=== PATIENT | female | born 1955 | race Caucasian/White ===

== ENCOUNTER 2016-11-17 18:38 | Emergency (ER) | payer MEDICARE, OTHER ==
[2016-11-17 19:58] VITALS: BP 147/77
--- NOTE | 2016-11-17 20:15 | EDM.PDOC ---
ED HPI GENERAL MEDICAL PROBLEM - General Chief Complaint: Respiratory Problem Stated Complaint: PNEUMONIA/NOT GETTING BETTER Time Seen by Provider: 11/17/16 20:06 Source of Information: Reports: Patient, Old Records, RN Notes Reviewed History Limitations: Reports: No Limitations - History of Present Illness INITIAL COMMENTS - FREE TEXT/NARRATIVE: drove herself here Chief complaint Cough, chest tightness, "pneumonia not getting better" History of present illness 61-year-old female was seen in emergency room in [place] 15 days ago diagnosed with right lung pneumonia and prescribed azithromycin and albuterol. Seen in follow-up a few days later and was changed to cefuroxime by mouth twice a day and Brio inhaler. She was getting better until yesterday, when she finished her a cefuroxime. Started getting cough and chest tightness again. Initially she had fever up to 102. She's felt hot and cold and sweaty in the last few days but no fever documented. She is been able to eat but she's been drinking more. She feels like she could cough something up but also manages his a nonproductive cough. Chest feels tight but there is no pleuritic or sharp pain in the chest. 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 She had multiple injuries to her shoulder chest and pelvis related to her service and underwent numerous surgeries. She still has a home in [place] as well as a home locally. Bilateral Chest Pain Score (Numeric/FACES): 4 - Related Data Allergies Allergy/AdvReac Type Severity Reaction Status Date / Time beclomethasone dipropionate Allergy Rash Verified 11/17/16 19:52 [From Vancenase] butorphanol [From Stadol] Allergy Stomach Verified 11/17/16 19:52 Upset clopidogrel Allergy Cannot Verified 11/17/16 19:52 Remember duloxetine HCl Allergy Other Verified 11/17/16 19:52 [From Cymbalta] gabapentin Allergy Airway Verified 11/17/16 19:52 Tightness hyoscyamus Allergy Cannot Verified 11/17/16 19:52 Remember naproxen Allergy Anaphylactic Verified 11/17/16 19:52 Shock prednisone Allergy Rash Verified 11/17/16 19:52 pregabalin [From Lyrica] Allergy Cannot Verified 11/17/16 19:52 Remember simvastatin Allergy Cannot Verified 11/17/16 19:52 Remember tetracycline Allergy Rash Verified 11/17/16 19:52 aspartame AdvReac Headache Verified 11/17/16 19:52 aspirin AdvReac Vomiting Verified 11/17/16 19:52 [From Fiorinal-Codeine #3] butalbital AdvReac Vomiting Verified 11/17/16 19:52 [From Fiorinal-Codeine #3] butorphanol tartrate AdvReac Body Aches Verified 11/17/16 19:52 [From Stadol] caffeine AdvReac Vomiting Verified 11/17/16 19:52 [From Fiorinal-Codeine #3] codeine phosphate AdvReac Vomiting Verified 11/17/16 19:52 [From Fiorinal-Codeine #3] fentanyl AdvReac Vomiting Verified 11/17/16 19:52 formoterol fumarate AdvReac Shaking Verified 11/17/16 19:52 [From Dulera] hydrocodone AdvReac Vomiting Verified 11/17/16 19:52 hyoscyamine AdvReac Diarrhea Verified 11/17/16 19:52 ibuprofen [From Motrin] AdvReac Abdominal Verified 11/17/16 19:52 Pain mometasone furoate AdvReac Shaking Verified 11/17/16 19:52 [From Dulera] pravastatin AdvReac Abdominal Verified 11/17/16 19:52 Cramps Home Meds: Home Meds Aspirin [Hudson Chewable Aspirin] 81 mg PO DAILY 04/10/14 [History] Cefuroxime [Ceftin] 250 mg PO BID #14 tablet 11/17/16 [Rx] Dexamethasone 4 mg PO BID #14 tablet 11/17/16 [Rx] Fluticasone/Vilanterol [Breo Ellipta 100-25 MCG Inhalation Kit] 1 puff INH DAILY 11/17/16 [History] L Acidophil/B Lactis/B Longum [Florajen3] 1 cap PO DAILY 11/17/16 [History] Past Medical History HEENT History: Reports: Other (See Below) Other HEENT History: TMJ, eustachian tube dysfunction, tinnitus Respiratory History: Reports: Pneumonia, Recurrent Gastrointestinal History: Reports: Cholelithiasis Musculoskeletal History: Reports: Fibromyalgia - Infectious Disease History Infectious Disease History: Reports: C-Difficile - Past Surgical History HEENT Surgical History: Reports: Adenoidectomy, Oral Surgery, Tonsillectomy Cardiovascular Surgical History: Reports: Carotid Endarterectomy GI Surgical History: Reports: Cholecystectomy Neurological Surgical History: Reports: Discectomy, Lumbar Spine, Spinal Fusion Musculoskeletal Surgical History: Reports: Knee Replacement, Shoulder Surgery Social & Family History - Tobacco Use Smoking Status *Q: Never Smoker Second Hand Smoke Exposure: No - Caffeine Use Caffeine Use: Reports: None - Alcohol Use Days Per Week of Alcohol Use: 0 - Recreational Drug Use Recreational Drug Use: No ED ROS GENERAL - Review of Systems Review Of Systems: See Below Constitutional: Reports: Malaise, Fatigue, Diaphoresis. Denies: Fever HEENT: Reports: No Symptoms Respiratory: Reports: Shortness of Breath, Cough, Other (talking makes her short of breath). Denies: Sputum Cardiovascular: Denies: Chest Pain, Blood Pressure Problem, Edema Endocrine: Reports: No Symptoms GI/Abdominal: Reports: Decreased Appetite, Other (stool is altered and color). Denies: Abdominal Pain, Diarrhea, Vomiting : Reports: Other (urine is darker) Musculoskeletal: Reports: Other (limited mobility right shoulder due to previous surgeries, very sensitive in this area) Skin: Reports: No Symptoms Neurological: Reports: No Symptoms Hematologic/Lymphatic: Reports: No Symptoms ED EXAM, GENERAL - Physical Exam Exam: See Below Exam Limited By: No Limitations General Appearance: Alert, Anxious, Mild Distress, Other (space at length to the point that she gets short of breath, mild elevation systolic blood pressure otherwise vital signs normal including saturation on room air, does wheeze when she coughs) Eye Exam: Bilateral Eye: EOMI, Normal Inspection Ears: Normal External Exam, Normal Canal, Hearing Grossly Normal, Normal TMs Nose: Normal Inspection, Normal Mucosa Throat/Mouth: Normal Inspection, Normal Lips, Normal Teeth, Other (slightly wheezy voice) Head: Atraumatic Neck: Supple, Non-Tender, Other (scarring on the right side of the neck from previous surgery). No: Lymphadenopathy (R), Lymphadenopathy (L) Respiratory/Chest: No Respiratory Distress, No Accessory Muscle Use, Rhonchi, Wheezing (especially with coughing), Prolonged Expiration Cardiovascular: Normal Peripheral Pulses, Regular Rate, Rhythm GI/Abdominal: Soft, Non-Tender Extremities: Limited Range of Motion (and tenderness right shoulder) Neurological: Alert, Oriented, Normal Cognition Psychiatric: Anxious Skin Exam: Warm, Dry, Intact, Normal Color, No Rash Lymphatic: No Adenopathy Course - Vital Signs Last Recorded V/S: Last Vital Signs Temp 36.6 C 11/17/16 19:56 Pulse 83 11/17/16 19:56 Resp 20 11/17/16 19:56 BP 147/77 H 11/17/16 19:56 Pulse Ox 99 11/17/16 19:56 - Orders/Labs/Meds Orders: Active Orders 24 hr Category Date Time Status RT Aerosol Therapy [RC] ASDIRECTED Care 11/17/16 20:28 Active RT Aerosol Therapy [RC] ASDIRECTED Care 11/17/16 21:44 Active Chest 2V [CR] Stat Exams 11/17/16 20:27 Taken Labs: Laboratory Tests 11/17/16 11/17/16 Range/Units 20:41 20:41 WBC 7.3 (4.5-11.0) K/uL RBC 4.47 (3.30-5.50) M/uL Hgb 13.1 (12.0-15.0) g/dL Hct 40.1 (36.0-48.0) % MCV 90 (80-98) fL MCH 29 (27-31) pg MCHC 33 (32-36) % Plt Count 262 (150-400) K/uL Sodium 142 (140-148) mmol/L Potassium 4.3 (3.6-5.2) mmol/L Chloride 106 (100-108) mmol/L Carbon Dioxide 29 (21-32) mmol/L Anion Gap 7.0 (5.0-14.0) mmol/L BUN 18 (7-18) mg/dL Creatinine 1.0 (0.6-1.0) mg/dL Est Cr Clr Drug Dosing 56.71 mL/min Estimated GFR (MDRD) 57 L (>60) Glucose 108 H (74-106) mg/dL Calcium 9.2 (8.5-10.1) mg/dL Meds: Medications Discontinued Medications Generic Name Dose Route Start Last Admin Trade Name Freq PRN Reason Stop Dose Admin Albuterol/Ipratropium 3 ml 11/17/16 20:27 11/17/16 20:44 Duoneb 3.0-0.5 Mg/3 Ml NEB 11/17/16 20:28 3 ml ONETIME ONE Administration Albuterol/Ipratropium 3 ml 11/17/16 21:44 11/17/16 21:57 Duoneb 3.0-0.5 Mg/3 Ml NEB 11/17/16 21:45 3 ml ONETIME ONE Administration Cefuroxime Axetil 250 mg 11/17/16 21:44 11/17/16 21:55 Ceftin PO 11/17/16 21:45 250 mg ONETIME ONE Administration Dexamethasone 4 mg 11/17/16 21:43 11/17/16 21:55 Dexamethasone PO 11/17/16 21:44 4 mg ONETIME ONE Administration - Re-Assessments/Exams Free Text/Narrative Re-Assessment/Exam: 11/17/16 20:34 61-year-old female who was diagnosed with right-sided pneumonia on February 02, has persisting cough wheezing chest tightness although she is afebrile and her O2 saturation is normal on room air. Albuterol/ipratropium by nebulizer Chest x-ray 11/17/16 21:42 improvement in her breathing with the nebulizer, this will be repeated Chest x-ray by my interpretation shows a small area of pneumonia inferior aspect of right upper lobe CBC is normal Plan Extend cefuroxime 250 mg twice daily for an additional 7 days to make a total of 14 days Add dexamethasone 8 mg daily for 7 days 11/17/16 21:47 Departure - Departure Time of Disposition: 21:48 Disposition: Home, Self-Care 01 Condition: Good Clinical Impression: Right upper lobe pneumonia Qualifiers: Pneumonia type: due to unspecified organism Qualified Code(s): J18.1 - Lobar pneumonia, unspecified organism - Discharge Information Prescriptions: Cefuroxime [Ceftin] 250 mg PO BID #14 tablet Dexamethasone 4 mg PO BID #14 tablet Instructions: Community-Acquired Pneumonia, Adult, [id number] Referrals: PCP,None [Primary Care Provider] - Forms: ED Department Discharge Additional Instructions: please see your doctor or clinic if not improving within the next week Otherwise she will want to see her doctor within the next few weeks to get repeat x-ray done to make sure that the x-ray returns to normal - My Orders Last 24 Hours: My Active Orders 11/17/16 20:27 Chest 2V [CR] Stat 11/17/16 20:28 RT Aerosol Therapy [RC] ASDIRECTED 08/07/17 21:44 RT Aerosol Therapy [RC] ASDIRECTED - Assessment/Plan Last 24 Hours: My Active Orders 11/17/16 20:27 Chest 2V [CR] Stat 11/17/16 20:28 RT Aerosol Therapy [RC] ASDIRECTED 11/17/16 21:44 RT Aerosol Therapy [RC] ASDIRECTED
[2016-11-17] MEDS ORDERED: Albuterol/Ipratropium 3.0-0.5 MG/3 ML Neb Soln NEB ONE ×2 (20:27→21:44)
[2016-11-17] MEDS ORDERED: Dexamethasone 4 MG Tab PO ONE (21:43)
--- NOTE | 2016-11-18 09:26 | CR ---
Chest 2V HISTORY: cough dyspnea dx rt pneumonia OCt 23 FINDINGS: There are mild infiltrates and consolidation right middle lobe suspicious for pneumonia. R emainder of the chest is clear. Cardiomediastinal silhouette is within normal limits. No vascular re distribution or pleural fluid is seen. Bony structures are unremarkable. IMPRESSION: Probable right middle lobe pneumonia. Follow-up chest exam is recommended after treatmen t to document resolution.
== END 2016-11-17 22:17 | disposition home or self-care (01) ==
LOC: JP.ED 18:38
DX: J18.9 Pneumonia, unspecified organism (principal); Z98.890 Other specified postprocedural states; Z90.49 Acquired absence of other specified parts of digestive tract; Z96.659 Presence of unspecified artificial knee joint; Z88.6 Allergy status to analgesic agent; Z88.8 Allergy status to other drugs, medicaments and biological substances; Z88.5 Allergy status to narcotic agent; Z88.1 Allergy status to other antibiotic agents; Z79.899 Other long term (current) drug therapy; Z91.09 Other allergy status, other than to drugs and biological substances
CPT/HCPCS: 36415; 71020; 80048; 85027; 99285; A9270; J7620; J8540; 99284

== ENCOUNTER 2016-12-05 10:48 | Emergency (ER) | payer MEDICARE, OTHER ==
[2016-12-05 11:47] VITALS: BP 163/91
--- NOTE | 2016-12-05 11:59 | EDM.PDOC ---
ED HPI GENERAL MEDICAL PROBLEM - General Chief Complaint: Respiratory Problem Stated Complaint: SHORTNESS OF BREATH Time Seen by Provider: 12/05/16 11:30 Source of Information: Reports: Patient, Family History Limitations: Reports: No Limitations - History of Present Illness INITIAL COMMENTS - FREE TEXT/NARRATIVE: 61-year-old female who has been struggling with a "pneumonia" for the past month , several courses of antibiotics who had a d-dimer checked 2 days ago which was elevated, a CT scan of her chest this morning which showed pulmonary artery emboli on the right side so she was sent to the emergency room. She is short of breath with activity but not hypoxic, not tachycardic, she has a dull intermittent chest pain but nothing significant. No hemoptysis. Onset: Gradual Duration: Week(s): (Several weeks) Associated Symptoms: Reports: Chest Pain, Cough, Shortness of Breath Right Chest Pain Score (Numeric/FACES): 6 - Related Data Allergies Allergy/AdvReac Type Severity Reaction Status Date / Time gabapentin Allergy Severe Airway Verified 12/05/16 11:24 Tightness naproxen Allergy Severe Anaphylactic Verified 12/05/16 11:24 Shock beclomethasone dipropionate Allergy Rash Verified 12/05/16 11:24 [From Vancenase] butorphanol [From Stadol] Allergy Stomach Verified 12/05/16 11:24 Upset clopidogrel Allergy Cannot Verified 12/05/16 11:24 Remember duloxetine HCl Allergy Other Verified 12/05/16 11:24 [From Cymbalta] hyoscyamus Allergy Cannot Verified 12/05/16 11:24 Remember prednisone Allergy Rash Verified 12/05/16 11:24 pregabalin [From Lyrica] Allergy Cannot Verified 12/05/16 11:24 Remember simvastatin Allergy Cannot Verified 12/05/16 11:24 Remember tetracycline Allergy Rash Verified 12/05/16 11:24 aspartame AdvReac Headache Verified 12/05/16 11:24 aspirin AdvReac Vomiting Verified 12/05/16 11:24 [From Fiorinal-Codeine #3] butalbital AdvReac Vomiting Verified 12/05/16 11:24 [From Fiorinal-Codeine #3] butorphanol tartrate AdvReac Body Aches Verified 12/05/16 11:24 [From Stadol] caffeine AdvReac Vomiting Verified 12/05/16 11:24 [From Fiorinal-Codeine #3] codeine phosphate AdvReac Vomiting Verified 12/05/16 11:24 [From Fiorinal-Codeine #3] fentanyl AdvReac Vomiting Verified 12/05/16 11:24 formoterol fumarate AdvReac Shaking Verified 12/05/16 11:24 [From Dulera] hydrocodone AdvReac Vomiting Verified 12/05/16 11:24 hyoscyamine AdvReac Diarrhea Verified 12/05/16 11:24 ibuprofen [From Motrin] AdvReac Abdominal Verified 12/05/16 11:24 Pain mometasone furoate AdvReac Shaking Verified 12/05/16 11:24 [From Dulera] pravastatin AdvReac Abdominal Verified 12/05/16 11:24 Cramps Home Meds: Home Meds Aspirin [Hudson Chewable Aspirin] 81 mg PO DAILY 04/10/14 [History] L Acidophil/B Lactis/B Longum [Florajen3] 1 cap PO DAILY 11/17/16 [History] Levofloxacin [Levaquin] 500 mg PO Q24H 12/05/16 [History] Past Medical History HEENT History: Reports: Other (See Below) Other HEENT History: TMJ, eustachian tube dysfunction, tinnitus Respiratory History: Reports: Pneumonia, Recurrent Gastrointestinal History: Reports: Cholelithiasis Musculoskeletal History: Reports: Fibromyalgia 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 - Infectious Disease History Infectious Disease History: Reports: C-Difficile, Chicken Pox, Measles - Past Surgical History HEENT Surgical History: Reports: Adenoidectomy, Oral Surgery, Tonsillectomy Cardiovascular Surgical History: Reports: Carotid Endarterectomy Other Respiratory Surgeries/Procedures: thoracic outlet syndrome GI Surgical History: Reports: Cholecystectomy Neurological Surgical History: Reports: Discectomy, Lumbar Spine, Spinal Fusion Musculoskeletal Surgical History: Reports: Arthroscopic Knee, Shoulder Surgery Other Musculoskeletal Surgeries/Procedures:: torn meniscus both knees Social & Family History - Tobacco Use Smoking Status *Q: Never Smoker Second Hand Smoke Exposure: No - Caffeine Use Caffeine Use: Reports: None - Alcohol Use Days Per Week of Alcohol Use: 0 - Recreational Drug Use Recreational Drug Use: No ED ROS GENERAL - Review of Systems Review Of Systems: See Below Constitutional: Reports: Malaise. Denies: Fever, Chills Respiratory: Reports: Shortness of Breath, Cough. Denies: Sputum Cardiovascular: Reports: Chest Pain (Dull intermittent pain on the upper right chest) GI/Abdominal: Denies: Nausea, Vomiting Skin: Reports: No Symptoms Neurological: Reports: No Symptoms Psychiatric: Reports: No Symptoms ED EXAM, GENERAL - Physical Exam Exam: See Below Exam Limited By: No Limitations General Appearance: Alert, No Apparent Distress Head: Atraumatic Respiratory/Chest: No Respiratory Distress, Lungs Clear Cardiovascular: Regular Rate, Rhythm GI/Abdominal: Non-Tender Extremities: No: Pedal Edema Neurological: Alert, Oriented Psychiatric: Normal Affect, Normal Mood Skin Exam: Warm, Dry Course - Vital Signs Last Recorded V/S: Last Vital Signs Temp 96.2 F 12/05/16 11:20 Pulse 98 12/05/16 11:20 Resp 18 12/05/16 11:20 BP 163/91 H 12/05/16 11:20 Pulse Ox 98 12/05/16 11:20 - Orders/Labs/Meds Labs: Laboratory Tests 12/05/16 Range/Units 12:14 PT 9.9 (9.5-12.0) sec INR 0.93 (0.80-1.20) Meds: Medications Discontinued Medications Generic Name Dose Route Start Last Admin Trade Name Freq PRN Reason Stop Dose Admin Enoxaparin Sodium 150 mg 12/05/16 12:30 12/05/16 12:40 Lovenox SUBCUT 150 mg Q24H GLADYS Administration Warfarin Sodium 7.5 mg 12/05/16 12:30 12/05/16 12:39 Coumadin PO 12/05/16 12:31 7.5 mg ONETIME ONE Administration - Re-Assessments/Exams Free Text/Narrative Re-Assessment/Exam: 12/05/16 12:10 Patient is not hypoxic, not tachycardic and stable, with symptoms lasting for several weeks her PE has probably been there for most of that time. Discussed her condition with the hospitalist service and anticoagulation will be initiated. She'll be given 150 mg of Lovenox subcutaneous through the weekend along with 7.5 mg of warfarin, daily INRs will be started tomorrow. Hopefully her anticoagulation and care can be taken over by primary care next week. Departure - Departure Time of Disposition: 13:34 Disposition: Home, Self-Care 01 Condition: Good Clinical Impression: Pulmonary embolism on right - Discharge Information Instructions: Pulmonary Embolism Referrals: Se Barros MD [Primary Care Provider] - Forms: ED Department Discharge Care Plan Goals: Continue your current medications and return daily for anticoagulation medications and testing as discussed.
[2016-12-05] MEDS ORDERED: Enoxaparin 100 MG/1 ML Syringe SUBCUT ONE (12:07)
[2016-12-05] MEDS ORDERED: Warfarin 5 MG Tab PO ONE (12:07)
[2016-12-05] MEDS ORDERED: Enoxaparin 80 MG/0.8 ML Syringe SUBCUT SCH (12:30)
[2016-12-05] MEDS ORDERED: Warfarin 2.5 MG Tab PO ONE (12:30)
== END 2016-12-05 13:31 | disposition home or self-care (01) ==
LOC: JP.ED 10:48
DX: I26.99 Other pulmonary embolism without acute cor pulmonale (principal); Z88.8 Allergy status to other drugs, medicaments and biological substances; Z88.1 Allergy status to other antibiotic agents; Z88.5 Allergy status to narcotic agent; Z88.6 Allergy status to analgesic agent; Z79.82 Long term (current) use of aspirin; Z79.899 Other long term (current) drug therapy; Z90.49 Acquired absence of other specified parts of digestive tract; Z98.1 Arthrodesis status; Z98.890 Other specified postprocedural states; R06.02 Shortness of breath; R91.8 Other nonspecific abnormal finding of lung field; R79.1 Abnormal coagulation profile
CPT/HCPCS: 36415; 71275; 82565; 85610; 99285; A9270; J1650; J7030; Q9967; 99284

== ENCOUNTER 2017-01-26 13:30 | Emergency (ER) | payer MEDICARE, OTHER ==
[2017-01-26 13:48] VITALS: BP 151/96
--- NOTE | 2017-01-26 14:43 | EDM.PDOC ---
ED HPI GENERAL MEDICAL PROBLEM - General Chief Complaint: Respiratory Problem Stated Complaint: CHEST TIGHTNESS Time Seen by Provider: 01/26/17 14:00 Source of Information: Reports: Patient History Limitations: Reports: No Limitations - History of Present Illness INITIAL COMMENTS - FREE TEXT/NARRATIVE: 61-year-old female with a history of pulmonary emboli over the past several days has had increased cough, burning sensation in her chest and intermittent shortness of breath. I believe she has a strong anxiety component as well. She is on Coumadin for the PE. She is also taking medicine under her tongue to combat systemic candidiasis. She denies any fevers or chills, she is a nonsmoker. She claims her cough is becoming productive. Onset: Gradual (Over the past several days) Severity: Moderate Associated Symptoms: Reports: Chest Pain, Cough, Shortness of Breath. Denies: Fever/Chills, Nausea/Vomiting Upper Chest Pain Score (Numeric/FACES): 8 - Related Data Allergies Allergy/AdvReac Type Severity Reaction Status Date / Time gabapentin Allergy Severe Airway Verified 01/26/17 13:52 Tightness naproxen Allergy Severe Anaphylactic Verified 01/26/17 13:52 Shock beclomethasone dipropionate Allergy Rash Verified 01/26/17 13:52 [From Vancenase] butorphanol [From Stadol] Allergy Stomach Verified 01/26/17 13:52 Upset clopidogrel Allergy Cannot Verified 01/26/17 13:52 Remember duloxetine HCl Allergy Other Verified 01/26/17 13:52 [From Cymbalta] hyoscyamus Allergy Cannot Verified 01/26/17 13:52 Remember prednisone Allergy Rash Verified 01/26/17 13:52 pregabalin [From Lyrica] Allergy Cannot Verified 01/26/17 13:52 Remember simvastatin Allergy Cannot Verified 01/26/17 13:52 Remember tetracycline Allergy Rash Verified 01/26/17 13:52 aspartame AdvReac Headache Verified 01/26/17 13:52 aspirin AdvReac Vomiting Verified 01/26/17 13:52 [From Fiorinal-Codeine #3] butalbital AdvReac Vomiting Verified 01/26/17 13:52 [From Fiorinal-Codeine #3] butorphanol tartrate AdvReac Body Aches Verified 01/26/17 13:52 [From Stadol] caffeine AdvReac Vomiting Verified 01/26/17 13:52 [From Fiorinal-Codeine #3] codeine phosphate AdvReac Vomiting Verified 01/26/17 13:52 [From Fiorinal-Codeine #3] fentanyl AdvReac Vomiting Verified 01/26/17 13:52 formoterol fumarate AdvReac Shaking Verified 01/26/17 13:52 [From Dulera] hydrocodone AdvReac Vomiting Verified 01/26/17 13:52 hyoscyamine AdvReac Diarrhea Verified 01/26/17 13:52 ibuprofen [From Motrin] AdvReac Abdominal Verified 01/26/17 13:52 Pain mometasone furoate AdvReac Shaking Verified 01/26/17 13:52 [From Dulera] pravastatin AdvReac Abdominal Verified 01/26/17 13:52 Cramps Home Meds: Home Meds Aspirin [Hudson Chewable Aspirin] 81 mg PO DAILY 04/10/14 [History] L Acidophil/B Lactis/B Longum [Florajen3] 1 cap PO DAILY 11/17/16 [History] Warfarin [Coumadin] 2 mg PO DAILY 01/26/17 [History] Past Medical History HEENT History: Reports: Other (See Below) Other HEENT History: TMJ, eustachian tube dysfunction, tinnitus Cardiovascular History: Reports: Blood Clots/VTE/DVT Respiratory History: Reports: PE, Pneumonia, Recurrent Gastrointestinal History: Reports: Cholelithiasis Musculoskeletal History: Reports: Fibromyalgia 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 Endocrine/Metabolic History: Reports: Obesity/BMI 30+ - Infectious Disease History Infectious Disease History: Reports: C-Difficile - Past Surgical History HEENT Surgical History: Reports: Adenoidectomy, Oral Surgery, Tonsillectomy Cardiovascular Surgical History: Reports: Carotid Endarterectomy Other Respiratory Surgeries/Procedures: thoracic outlet syndrome GI Surgical History: Reports: Cholecystectomy Neurological Surgical History: Reports: Discectomy, Lumbar Spine, Spinal Fusion Musculoskeletal Surgical History: Reports: Arthroscopic Knee, Shoulder Surgery Other Musculoskeletal Surgeries/Procedures:: torn meniscus both knees Social & Family History - Tobacco Use Smoking Status *Q: Never Smoker Second Hand Smoke Exposure: No - Caffeine Use Caffeine Use: Reports: None - Alcohol Use Days Per Week of Alcohol Use: 0 - Recreational Drug Use Recreational Drug Use: No ED ROS GENERAL - Review of Systems Review Of Systems: See Below Constitutional: Reports: Malaise. Denies: Fever, Chills HEENT: Reports: Rhinitis Respiratory: Reports: Shortness of Breath, Cough, Sputum Cardiovascular: Reports: Chest Pain GI/Abdominal: Reports: Other (Claims she has some type of abdominal candidiasis) . Denies: Nausea, Vomiting Skin: Reports: No Symptoms Neurological: Reports: Dizziness. Denies: Headache Psychiatric: Reports: Anxiety ED EXAM, GENERAL - Physical Exam Exam: See Below Exam Limited By: No Limitations General Appearance: Alert, No Apparent Distress, Anxious Head: Atraumatic Respiratory/Chest: No Respiratory Distress, Lungs Clear Cardiovascular: Regular Rate, Rhythm GI/Abdominal: Soft, Non-Tender Neurological: Alert Psychiatric: Anxious Skin Exam: Warm, Dry Course - Vital Signs Last Recorded V/S: Last Vital Signs Temp 98.2 F 01/26/17 13:44 Pulse 99 01/26/17 13:44 Resp 20 01/26/17 13:44 BP 151/96 H 01/26/17 13:44 Pulse Ox 96 01/26/17 13:44 - Orders/Labs/Meds Orders: Active Orders 24 hr Category Date Time Status Chest 2V [CR] Routine Exams 01/26/17 14:45 Taken - Re-Assessments/Exams Free Text/Narrative Re-Assessment/Exam: 01/26/17 14:42 Patient was sent back for a two-view chest x-ray. 01/26/17 15:56 the x-ray showed an abnormality in the right apex which is consistent with past surgical changes, there was no other findings. Patient remained stable. I don't feel antibiotic therapy is warranted at this time. She was sent over to the Coumadin clinic to get her pro time checked and she can recheck in 2 days if not improving satisfactorily. 01/26/17 17:34 Patient informed us that her pro time is 2.2. She was reassured that no further treatment is needed at this time. Departure - Departure Time of Disposition: 16:06 Disposition: Home, Self-Care 01 Condition: Good Clinical Impression: Bronchitis - Discharge Information Instructions: Acute Bronchitis, [id number] Referrals: Se Barros MD [Primary Care Provider] - Forms: ED Department Discharge Care Plan Goals: Rest, fluids, your cough should improve with time. Return at any time if worsening or concerns, or consider rechecking in 2-3 days if not improving. - My Orders Last 24 Hours: My Active Orders 01/26/17 14:45 Chest 2V [CR] Routine - Assessment/Plan Last 24 Hours: My Active Orders 01/26/17 14:45 Chest 2V [CR] Routine
--- NOTE | 2017-01-27 09:08 | CR ---
Two-view chest Comparison: Chest CT November 2016. The heart and vascular structures are within normal limits. There are no infiltrates or effusions. Th e patient has had a prior right thoracotomy. Several anterior right ribs of the upper hemithorax are absent. There is a density protruding into the right upper lobe region consistent with fat as noted o n the CT. Impression: 1. No acute findings.
== END 2017-01-26 16:06 | disposition home or self-care (01) ==
LOC: JP.ED 13:30
DX: J40 Bronchitis, not specified as acute or chronic (principal); Z86.711 Personal history of pulmonary embolism; Z79.01 Long term (current) use of anticoagulants; Z79.82 Long term (current) use of aspirin; Z88.8 Allergy status to other drugs, medicaments and biological substances; Z88.5 Allergy status to narcotic agent; Z88.6 Allergy status to analgesic agent; Z87.01 Personal history of pneumonia (recurrent)
CPT/HCPCS: 71020; 71020-26; 99283; 99285

== ENCOUNTER 2020-06-21 12:35 | Emergency (ER) | payer MEDICARE, OTHER ==
[2020-06-21] MEDS ORDERED: diphenhydrAMINE 50 MG/ML SDV IVPUSH ONE (13:03)
--- NOTE | 2020-06-21 13:12 | EDM.PDOC ---
ED HPI GENERAL MEDICAL PROBLEM - General Chief Complaint: Neurological Problem Stated Complaint: TROUBLE TALKING, LIGHT HEADED, NUMBNESS IN HEAD Time Seen by Provider: 06/21/20 12:50 Source of Information: Reports: Patient, Family History Limitations: Reports: No Limitations - History of Present Illness INITIAL COMMENTS - FREE TEXT/NARRATIVE: 64-year-old female who developed some expressive aphasia this morning while on her phone talking to her provider. They recommended she come in and get checked out. She is improved, her speech is basically back to normal but she feels hot, flushed, lightheaded, and did have some numbness on the right side of her tongue and neck earlier today. Her blood pressure is high for her. She is having no pain. Onset: Sudden (Aphasia started fairly suddenly about 1 hour ago) Associated Symptoms: Reports: Malaise, Rash (Face and neck are erythematous). Denies: Confusion, Chest Pain, Cough, Nausea/Vomiting - Related Data Allergies Allergy/AdvReac Type Severity Reaction Status Date / Time gabapentin Allergy Severe Airway Verified 06/21/20 13:37 Tightness naproxen Allergy Severe Anaphylactic Verified 06/21/20 13:37 Shock beclomethasone dipropionate Allergy Rash Verified 06/21/20 13:37 [From Vancenase] clopidogrel Allergy Cannot Verified 06/21/20 13:37 Remember duloxetine HCl Allergy Other Verified 06/21/20 13:37 [From Cymbalta] hyoscyamus Allergy Cannot Verified 06/21/20 13:37 Remember prednisone Allergy Rash Verified 06/21/20 13:37 pregabalin [From Lyrica] Allergy Cannot Verified 06/21/20 13:37 Remember simvastatin Allergy Cannot Verified 06/21/20 13:37 Remember tetracycline Allergy Rash Verified 06/21/20 13:37 aspartame AdvReac Headache Verified 06/21/20 13:37 aspirin AdvReac Vomiting Verified 06/21/20 13:37 [From Fiorinal-Codeine #3] butalbital AdvReac Vomiting Verified 06/21/20 13:37 [From Fiorinal-Codeine #3] butorphanol [From Stadol] AdvReac Stomach Verified 06/21/20 13:37 Upset butorphanol tartrate AdvReac Body Aches Verified 06/21/20 13:37 [From Stadol] caffeine AdvReac Vomiting Verified 06/21/20 13:37 [From Fiorinal-Codeine #3] codeine phosphate AdvReac Vomiting Verified 06/21/20 13:37 [From Fiorinal-Codeine #3] fentanyl AdvReac Vomiting Verified 06/21/20 13:37 formoterol fumarate AdvReac Shaking Verified 06/21/20 13:37 [From Dulera] hydrocodone AdvReac Vomiting Verified 06/21/20 13:37 hyoscyamine AdvReac Diarrhea Verified 06/21/20 13:37 ibuprofen [From Motrin] AdvReac Abdominal Verified 06/21/20 13:37 Pain mometasone furoate AdvReac Shaking Verified 06/21/20 13:37 [From Dulera] pravastatin AdvReac Abdominal Verified 06/21/20 13:37 Cramps Home Meds: Home Meds Aspirin [Hudson Chewable Aspirin] 81 mg PO DAILY 04/10/14 [History] L Acidophil/B Lactis/B Longum [Florajen3] 1 cap PO DAILY 11/17/16 [History] Past Medical History HEENT History: Reports: Other (See Below) Other HEENT History: TMJ, eustachian tube dysfunction, tinnitus Cardiovascular History: Reports: Blood Clots/VTE/DVT Respiratory History: Reports: PE, Pneumonia, Recurrent Gastrointestinal History: Reports: Cholelithiasis Musculoskeletal History: Reports: Fibromyalgia 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 Endocrine/Metabolic History: Reports: Obesity/BMI 30+ - Infectious Disease History Infectious Disease History: Reports: C-Difficile - Past Surgical History HEENT Surgical History: Reports: Adenoidectomy, Oral Surgery, Tonsillectomy Cardiovascular Surgical History: Reports: Carotid Endarterectomy Other Respiratory Surgeries/Procedures: thoracic outlet syndrome GI Surgical History: Reports: Cholecystectomy Neurological Surgical History: Reports: Discectomy, Lumbar Spine, Spinal Fusion Musculoskeletal Surgical History: Reports: Arthroscopic Knee, Shoulder Surgery Other Musculoskeletal Surgeries/Procedures:: torn meniscus both knees Social & Family History - Caffeine Use Caffeine Use: Reports: None ED ROS GENERAL - Review of Systems Review Of Systems: See Below Constitutional: Reports: Malaise. Denies: Fever, Chills HEENT: Denies: Vision Change Respiratory: Denies: Shortness of Breath, Cough Cardiovascular: Denies: Chest Pain, Palpitations GI/Abdominal: Denies: Abdominal Pain, Nausea, Vomiting Skin: Reports: Erythema (Facial and neck erythema) Neurological: Reports: Dizziness, Tingling (Tingling and paresthesias of the right tongue and right neck). Denies: Headache Psychiatric: Reports: No Symptoms ED EXAM, GENERAL - Physical Exam Exam: See Below Exam Limited By: No Limitations General Appearance: Alert, Anxious Eye Exam: Bilateral Eye: EOMI, Normal Inspection Throat/Mouth: Normal Inspection, Other (Facial muscles look symmetric in strength) Head: Other (The skin of the face and neck bilaterally looks erythematous and slightly edematous, it is nonblanching). No: Facial Swelling Neck: Supple, Non-Tender Respiratory/Chest: No Respiratory Distress, Lungs Clear Cardiovascular: Regular Rate, Rhythm. No: Extra Beats GI/Abdominal: Soft, Non-Tender Extremities: Normal Inspection. No: Pedal Edema Neurological: Alert, Oriented, No Motor/Sensory Deficits (I cannot reproduce neurologic deficits of the extremities or face) Course - Vital Signs Last Recorded V/S: Last Vital Signs Temp 97.8 F 06/21/20 13:40 Pulse 88 06/21/20 14:57 Resp 20 06/21/20 13:40 BP 156/70 H 06/21/20 14:57 Pulse Ox 99 06/21/20 14:57 - Orders/Labs/Meds Labs: Laboratory Tests 06/21/20 06/21/20 06/21/20 Range/Units 13:05 13:05 14:08 WBC 6.7 (4.5-11.0) K/uL RBC 4.82 (3.30-5.50) M/uL Hgb 14.4 (12.0-15.0) g/dL Hct 43.5 (36.0-48.0) % MCV 90 (80-98) fL MCH 30 (27-31) pg MCHC 33 (32-36) % Plt Count 213 (150-400) K/uL Neut % (Auto) 62 (36-66) % Lymph % (Auto) 26 (24-44) % [place] % (Auto) 10 H (2-6) % Eos % (Auto) 2 (2-4) % Baso % (Auto) 0 (0-1) % Sodium 142 (140-148) mmol/L Potassium 3.9 (3.6-5.2) mmol/L Chloride 105 (100-108) mmol/L Carbon Dioxide 26 (21-32) mmol/L Anion Gap 11.4 (5.0-14.0) mmol/L BUN 21 H (7-18) mg/dL Creatinine 1.0 (0.6-1.0) mg/dL Est Cr Clr Drug Dosing 54.60 mL/min Estimated GFR (MDRD) 56 L (>60) Glucose 193 H (74-106) mg/dL Calcium 9.4 (8.5-10.1) mg/dL Total Bilirubin 0.2 D (0.2-1.0) mg/dL AST 16 (15-37) U/L ALT 36 (12-78) U/L Alkaline Phosphatase 109 (46-116) U/L Total Protein 7.1 (6.4-8.2) g/dL Albumin 3.8 (3.4-5.0) g/dL Globulin 3.3 (2.3-3.5) g/dL Albumin/Globulin Ratio 1.2 (1.2-2.2) Urine Color Yellow (YELLOW) Urine Appearance Clear (CLEAR) Urine pH 7.0 (5.0-8.0) Ur Specific [place] 1.010 (1.008-1.030) Urine Protein Negative (NEGATIVE) mg/dL Urine Glucose (UA) Negative (NEGATIVE) mg/dL Urine Ketones Negative (NEGATIVE) mg/dL Urine Occult Blood Negative (NEGATIVE) Urine Nitrite Negative (NEGATIVE) Urine Bilirubin Negative (NEGATIVE) Urine Urobilinogen 0.2 (0.2-1.0) EU/dL Ur Leukocyte Esterase Negative (NEGATIVE) Urine RBC Not seen (0-5) Urine WBC Not seen (0-5) Ur Epithelial Cells Rare Amorphous Sediment Not seen Urine Bacteria Rare Urine Mucus Not seen Meds: Medications Discontinued Medications Generic Name Dose Route Start Last Admin Trade Name Freq PRN Reason Stop Dose Admin Diphenhydramine HCl 25 mg 06/21/20 13:03 06/21/20 13:18 Diphenhydramine 50 Mg/Ml Sdv IVPUSH 06/21/20 13:04 25 mg ONETIME ONE Administration - Re-Assessments/Exams Free Text/Narrative Re-Assessment/Exam: 06/21/20 13:11 She appears to be having some kind of hypervascular allergic reaction above her neck, an IV will be started and she will be given a small dose of IV Benadryl. CBC CMP are drawn and a CT of the head without contrast will be obtained. 06/21/20 14:[address] is normal, all labs are reassuring and her symptoms resolved. She will follow up with Dr. Barros in the near future. Departure - Departure Time of Disposition: 15:26 Disposition: Home, Self-Care 01 Clinical Impression: Near syncope, Aphasia - Discharge Information Instructions: Aphasia Referrals: Se Barros MD [Primary Care Provider] - Forms: ED Department Discharge Care Plan Goals: Continue your current medications and follow-up with Dr. Barros 1015 tomorrow morning to discuss your carotid ultrasound work-up. Return to the emergency room if symptoms recur and are persistent. Sepsis Event Note (ED) - Focused Exam Vital Signs: Vital Signs Temp Pulse Resp BP Pulse Ox 06/21/20 14:57 88 156/70 H 99 06/21/20 13:40 97.8 F 90 20 181/94 H 100 06/21/20 13:34 90 181/94 H 100 06/21/20 12:50 97.8 F 101 H 20 184/106 H 99
--- NOTE | 2020-06-21 14:42 | CT ---
Head wo Cont CLINICAL HISTORY: Aphasia COMPARISON: None TECHNIQUE: Transverse scans were obtained from the base of the skull through the vertex without IV contrast on a multislice, multidetector CT scanner. Auto dosage reduction and iterative reconstruction techniques employed. FINDINGS: No focal abnormal parenchymal density is identified.. There is no mass effect, hemorrhage, or extraaxial collection. The basal cisterns and sulci over the convexities are normal. The ventricles are normal for age. IMPRESSION: No acute intracranial process
[2020-06-21 14:57] VITALS: BP 156/70; PULSE 88
== END 2020-06-21 15:26 | disposition home or self-care (01) ==
LOC: JP.ED 12:35
DX: R47.01 Aphasia (principal); R55 Syncope and collapse; E66.9 Obesity, unspecified; Z68.35 Body mass index [BMI] 35.0-35.9, adult; Z88.8 Allergy status to other drugs, medicaments and biological substances; Z88.1 Allergy status to other antibiotic agents; Z88.6 Allergy status to analgesic agent; Z88.5 Allergy status to narcotic agent; Z79.82 Long term (current) use of aspirin
CPT/HCPCS: 36415; 70450; 70450-26; 80053; 81001; 85025; 96374; 99284; 99285-25; J1200

== ENCOUNTER 2020-07-31 03:31 | Emergency (ER) | payer MEDICARE, OTHER ==
[2020-07-31] MEDS ORDERED: Albuterol 0.083% 2.5 MG/3 ML Neb Soln NEB ONE (03:49)
[2020-07-31] MEDS ORDERED: Albuterol 0.083% 2.5 MG/3 ML Neb Soln ONE (03:51)
[2020-07-31] MEDS ORDERED: Sodium Chloride 0.9% 10 ML Syringe FLUSH PRN (04:17)
[2020-07-31] MEDS ORDERED: Sodium Chloride 0.9% 1,000 ML IV ONE (04:17)
[2020-07-31] MEDS ORDERED: Piperacillin/Tazobactam 4.5 GM in Sodium Chloride 0.9% 100 ML IV ONE (04:46)
--- NOTE | 2020-07-31 05:10 | EDM.PDOC ---
<OfficerJames - Last Filed: 07/31/20 05:05> ED HPI GENERAL MEDICAL PROBLEM - General Chief Complaint: General Stated Complaint: MEDICAL VIA [facility] Time Seen by Provider: 07/31/20 04:16 Source of Information: Reports: Family, Old Records, RN Notes Reviewed History Limitations: Reports: Physical Impairment - History of Present Illness INITIAL COMMENTS - FREE TEXT/NARRATIVE: 64-year-old female presents emergency department with a respiratory distress she is currently a [facility] was a complex medical history was just discharged from [facility] on the for cerebrovascular accident she was in the hospital for approximately 1 month has problems with dysphagia also has been aphasic however mother tells me that she is recently started to talk in a couple word sentences. She is nonverbal at this time. Difficult to obtain history and review of systems which is mostly taken from chart review - Related Data Allergies Allergy/AdvReac Type Severity Reaction Status Date / Time gabapentin Allergy Severe Airway Verified 07/31/20 04:14 Tightness naproxen Allergy Severe Anaphylactic Verified 07/31/20 04:14 Shock beclomethasone dipropionate Allergy Rash Verified 07/31/20 04:14 [From Vancenase] clopidogrel Allergy Cannot Verified 07/31/20 04:14 Remember duloxetine HCl Allergy Other Verified 07/31/20 04:14 [From Cymbalta] hyoscyamus Allergy Cannot Verified 07/31/20 04:14 Remember prednisone Allergy Rash Verified 07/31/20 04:14 pregabalin [From Lyrica] Allergy Cannot Verified 07/31/20 04:14 Remember simvastatin Allergy Cannot Verified 07/31/20 04:14 Remember tetracycline Allergy Rash Verified 07/31/20 04:14 aspartame AdvReac Headache Verified 07/31/20 04:14 aspirin AdvReac Vomiting Verified 07/31/20 04:14 [From Fiorinal-Codeine #3] butalbital AdvReac Vomiting Verified 07/31/20 04:14 [From Fiorinal-Codeine #3] butorphanol [From Stadol] AdvReac Stomach Verified 07/31/20 04:14 Upset butorphanol tartrate AdvReac Body Aches Verified 07/31/20 04:14 [From Stadol] caffeine AdvReac Vomiting Verified 07/31/20 04:14 [From Fiorinal-Codeine #3] codeine phosphate AdvReac Vomiting Verified 07/31/20 04:14 [From Fiorinal-Codeine #3] fentanyl AdvReac Vomiting Verified 07/31/20 04:14 formoterol fumarate AdvReac Shaking Verified 07/31/20 04:14 [From Dulera] hydrocodone AdvReac Vomiting Verified 07/31/20 04:14 hyoscyamine AdvReac Diarrhea Verified 07/31/20 04:14 ibuprofen [From Motrin] AdvReac Abdominal Verified 07/31/20 04:14 Pain mometasone furoate AdvReac Shaking Verified 07/31/20 04:14 [From Dulera] pravastatin AdvReac Abdominal Verified 07/31/20 04:14 Cramps Home Meds: Home Meds Aspirin [Hudson Chewable Aspirin] 81 mg PO DAILY 04/10/14 [History] L Acidophil/B Lactis/B Longum [Florajen3] 1 cap PO DAILY 11/17/16 [History] Acetaminophen [Tylenol] 650 mg GTUBE Q6H PRN 07/31/20 [History] Albuterol Sulfate 1 inh INH ASDIRECTED PRN 07/31/20 [History] Esomeprazole [NexIUM] 40 mg GTUBE DAILY 07/31/20 [History] Insulin Aspart [Insulin Aspart Flexpen] 07/31/20 [History] Insulin Aspart [Insulin Aspart Flexpen] 6 unit SQ Q4H 07/31/20 [History] carvediloL [Carvedilol] 12.5 mg GTUBE BID 07/31/20 [History] Past Medical History HEENT History: Reports: Other (See Below) Other HEENT History: TMJ, eustachian tube dysfunction, tinnitus Cardiovascular History: Reports: Blood Clots/VTE/DVT Respiratory History: Reports: PE, Pneumonia, Recurrent Gastrointestinal History: Reports: Cholelithiasis Genitourinary History: Reports: Other (See Below) Other Genitourinary History: indwelling catheter Musculoskeletal History: Reports: Fibromyalgia 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 Endocrine/Metabolic History: Reports: Obesity/BMI 30+ - Infectious Disease History Infectious Disease History: Reports: C-Difficile - Past Surgical History HEENT Surgical History: Reports: Adenoidectomy, Oral Surgery, Tonsillectomy Cardiovascular Surgical History: Reports: Carotid Endarterectomy Other Respiratory Surgeries/Procedures: thoracic outlet syndrome GI Surgical History: Reports: Cholecystectomy Female Surgical History: Reports: None Endocrine Surgical History: Reports: None Neurological Surgical History: Reports: Discectomy, Lumbar Spine, Spinal Fusion Musculoskeletal Surgical History: Reports: Arthroscopic Knee, Shoulder Surgery Other Musculoskeletal Surgeries/Procedures:: torn meniscus both knees Social & Family History - Tobacco Use Tobacco Use Status *Q: Never Tobacco User - Caffeine Use Caffeine Use: Reports: None - Recreational Drug Use Recreational Drug Use: No ED ROS GENERAL - Review of Systems Review Of Systems: Unable To Obtain ED EXAM, GENERAL - Physical Exam Exam: See Below Exam Limited By: Respiratory Distress General Appearance: Alert, Moderate Distress Respiratory/Chest: Respiratory Distress, Decreased Breath Sounds, Crackles, Rhonchi, Accessory Muscle Use Cardiovascular: Tachycardia GI/Abdominal: Soft, Non-Tender Departure - Departure Disposition: DC/Tfer to Other Clinical Impression: Pneumonia Respiratory failure with hypoxia Qualifiers: Chronicity: acute Qualified Code(s): J96.01 - Acute respiratory failure with hypoxia Pulmonary abscess Qualifiers: Pulmonary abscess pneumonia presence: with pneumonia Laterality: right Lung location: unspecified part of lung Qualified Code(s): J85.1 - Abscess of lung with pneumonia - Discharge Information Referrals: Se Barros MD [Primary Care Provider] - Forms: ED Department Discharge Care Plan Goals: Patient is to be transferred to [facility] in [place] for further medical care regarding worsening right-sided pneumonia and possible empyema. Patient was accepted by Dr. Fuentes at 7:15 AM. Sepsis Event Note (ED) - Evaluation Sepsis Screening Result: No Definite Risk <Car Neal - Last Filed: 07/31/20 10:36> Course - Vital Signs Last Recorded V/S: Last Vital Signs Temp 97.7 F 07/31/20 07:26 Pulse 101 H 07/31/20 07:26 Resp 20 07/31/20 07:26 BP 118/66 07/31/20 07:26 Pulse Ox 94 L 07/31/20 05:04 - Orders/Labs/Meds Orders: Active Orders 24 hr Category Date Time Status CULTURE BLOOD [BC] Urgent Lab 07/31/20 04:50 Received CULTURE BLOOD [BC] Urgent Lab 07/31/20 05:05 Received CULTURE RESPIRATORY + SMEAR [RM] Urgent Lab 07/31/20 04:36 Results Blood Culture x2 Reflex Set [OM.PC] Urgent Ot 07/31/20 04:46 Ordered Isolation [COMM] Stat Ot 07/31/20 04:23 Ordered Peripheral IV Insertion Adult [OM.PC] Urgent Ot 07/31/20 04:17 Ordered Severe Sepsis Onset Time [OM.PC] Stat Ot 07/31/20 04:46 Ordered Labs: Laboratory Tests 07/31/20 07/31/20 07/31/20 Range/Units 04:50 04:50 04:50 WBC 14.1 H (4.5-11.0) K/uL RBC 3.64 (3.30-5.50) M/uL Hgb 10.3 L D (12.0-15.0) g/dL Hct 33.5 L (36.0-48.0) % MCV 92 (80-98) fL MCH 28 (27-31) pg MCHC 31 L (32-36) % Plt Count 468 H (150-400) K/uL Neut % (Auto) 75 H (36-66) % Lymph % (Auto) 8 L (24-44) % [place] % (Auto) 15 H (2-6) % Eos % (Auto) 1 L (2-4) % Baso % (Auto) 0 (0-1) % PT 13.0 H (9.5-12.0) sec INR 1.20 (0.80-1.20) Sodium 137 L (140-148) mmol/L Potassium 5.0 (3.6-5.2) mmol/L Chloride 101 (100-108) mmol/L Carbon Dioxide 25 (21-32) mmol/L Anion Gap 16.0 H (5.0-14.0) mmol/L BUN 18 (7-18) mg/dL Creatinine 0.8 (0.6-1.0) mg/dL Est Cr Clr Drug Dosing 65.61 mL/min Estimated GFR (MDRD) > 60 (>60) Glucose 252 H (74-106) mg/dL Lactic Acid (0.4-2.0) mmol/L Calcium 8.9 (8.5-10.1) mg/dL Total Bilirubin 0.4 D (0.2-1.0) mg/dL AST 28 (15-37) U/L ALT 31 (12-78) U/L Alkaline Phosphatase 156 H (46-116) U/L Troponin I < 0.017 (0.000-0.056) ng/mL C-Reactive Protein (0.0-0.3) mg/dL Total Protein 6.7 (6.4-8.2) g/dL Albumin 1.8 L (3.4-5.0) g/dL Globulin 4.9 H (2.3-3.5) g/dL Albumin/Globulin Ratio 0.4 L (1.2-2.2) Procalcitonin ng/mL Urine Color (YELLOW) Urine Appearance (CLEAR) Urine pH (5.0-8.0) Ur Specific [place] (1.008-1.030) Urine Protein (NEGATIVE) mg/dL Urine Glucose (UA) (NEGATIVE) mg/dL Urine Ketones (NEGATIVE) mg/dL Urine Occult Blood (NEGATIVE) Urine Nitrite (NEGATIVE) Urine Bilirubin (NEGATIVE) Urine Urobilinogen (0.2-1.0) EU/dL Ur Leukocyte Esterase (NEGATIVE) Urine RBC (0-5) Urine WBC (0-5) Ur Epithelial Cells Amorphous Sediment Urine Bacteria Urine Mucus Influenza Type A RNA (NEGATIVE) RSV RNA (INAAT) (NEGATIVE) Influenza Type B RNA (NEGATIVE) SARS-CoV-2 RNA (ANEUDY) (NEGATIVE) 07/31/20 07/31/20 07/31/20 Range/Units 04:50 04:50 04:50 WBC (4.5-11.0) K/uL RBC (3.30-5.50) M/uL Hgb (12.0-15.0) g/dL Hct (36.0-48.0) % MCV (80-98) fL MCH (27-31) pg MCHC (32-36) % Plt Count (150-400) K/uL Neut % (Auto) (36-66) % Lymph % (Auto) (24-44) % [place] % (Auto) (2-6) % Eos % (Auto) (2-4) % Baso % (Auto) (0-1) % PT (9.5-12.0) sec INR (0.80-1.20) Sodium (140-148) mmol/L Potassium (3.6-5.2) mmol/L Chloride (100-108) mmol/L Carbon Dioxide (21-32) mmol/L Anion Gap (5.0-14.0) mmol/L BUN (7-18) mg/dL Creatinine (0.6-1.0) mg/dL Est Cr Clr Drug Dosing mL/min Estimated GFR (MDRD) (>60) Glucose (74-106) mg/dL Lactic Acid (0.4-2.0) mmol/L Calcium (8.5-10.1) mg/dL Total Bilirubin (0.2-1.0) mg/dL AST (15-37) U/L ALT (12-78) U/L Alkaline Phosphatase (46-116) U/L Troponin I (0.000-0.056) ng/mL C-Reactive Protein 18.79 H (0.0-0.3) mg/dL Total Protein (6.4-8.2) g/dL Albumin (3.4-5.0) g/dL Globulin (2.3-3.5) g/dL Albumin/Globulin Ratio (1.2-2.2) Procalcitonin 0.08 ng/mL Urine Color (YELLOW) Urine Appearance (CLEAR) Urine pH (5.0-8.0) Ur Specific [place] (1.008-1.030) Urine Protein (NEGATIVE) mg/dL Urine Glucose (UA) (NEGATIVE) mg/dL Urine Ketones (NEGATIVE) mg/dL Urine Occult Blood (NEGATIVE) Urine Nitrite (NEGATIVE) Urine Bilirubin (NEGATIVE) Urine Urobilinogen (0.2-1.0) EU/dL Ur Leukocyte Esterase (NEGATIVE) Urine RBC (0-5) Urine WBC (0-5) Ur Epithelial Cells Amorphous Sediment Urine Bacteria Urine Mucus Influenza Type A RNA Negative (NEGATIVE) RSV RNA (INAAT) Negative (NEGATIVE) Influenza Type B RNA Negative (NEGATIVE) SARS-CoV-2 RNA (ANEUDY) Negative (NEGATIVE) 07/31/20 07/31/20 Range/Units 04:50 06:26 WBC (4.5-11.0) K/uL RBC (3.30-5.50) M/uL Hgb (12.0-15.0) g/dL Hct (36.0-48.0) % MCV (80-98) fL MCH (27-31) pg MCHC (32-36) % Plt Count (150-400) K/uL Neut % (Auto) (36-66) % Lymph % (Auto) (24-44) % [place] % (Auto) (2-6) % Eos % (Auto) (2-4) % Baso % (Auto) (0-1) % PT (9.5-12.0) sec INR (0.80-1.20) Sodium (140-148) mmol/L Potassium (3.6-5.2) mmol/L Chloride (100-108) mmol/L Carbon Dioxide (21-32) mmol/L Anion Gap (5.0-14.0) mmol/L BUN (7-18) mg/dL Creatinine (0.6-1.0) mg/dL Est Cr Clr Drug Dosing mL/min Estimated GFR (MDRD) (>60) Glucose (74-106) mg/dL Lactic Acid 1.4 (0.4-2.0) mmol/L Calcium (8.5-10.1) mg/dL Total Bilirubin (0.2-1.0) mg/dL AST (15-37) U/L ALT (12-78) U/L Alkaline Phosphatase (46-116) U/L Troponin I (0.000-0.056) ng/mL C-Reactive Protein (0.0-0.3) mg/dL Total Protein (6.4-8.2) g/dL Albumin (3.4-5.0) g/dL Globulin (2.3-3.5) g/dL Albumin/Globulin Ratio (1.2-2.2) Procalcitonin ng/mL Urine Color Red A (YELLOW) Urine Appearance Cloudy A (CLEAR) Urine pH 5.5 (5.0-8.0) Ur Specific [place] 1.020 (1.008-1.030) Urine Protein 100 H (NEGATIVE) mg/dL Urine Glucose (UA) Negative (NEGATIVE) mg/dL Urine Ketones Negative (NEGATIVE) mg/dL Urine Occult Blood Large H (NEGATIVE) Urine Nitrite Negative (NEGATIVE) Urine Bilirubin Negative (NEGATIVE) Urine Urobilinogen 0.2 (0.2-1.0) EU/dL Ur Leukocyte Esterase Small H (NEGATIVE) Urine RBC 50-75 H (0-5) Urine WBC 0-5 (0-5) Ur Epithelial Cells Few Amorphous Sediment Not seen Urine Bacteria Moderate Urine Mucus Not seen Influenza Type A RNA (NEGATIVE) RSV RNA (INAAT) (NEGATIVE) Influenza Type B RNA (NEGATIVE) SARS-CoV-2 RNA (ANEUDY) (NEGATIVE) Meds: Medications Discontinued Medications Generic Name Dose Route Start Last Admin Trade Name Freq PRN Reason Stop Dose Admin Albuterol 2.5 mg 07/31/20 03:49 07/31/20 03:55 Albuterol 0.083% 2.5 Mg/3 Ml Neb Soln NEB 07/31/20 03:50 2.5 mg ONETIME ONE Administration Albuterol Confirm 07/31/20 03:51 07/31/20 03:56 Albuterol 0.083% 2.5 Mg/3 Ml Neb Soln Administered 07/31/20 03:52 Not Given Dose 2.5 mg .ROUTE .STK-MED ONE Sodium Chloride 1,000 mls @ 999 mls/hr 07/31/20 04:17 07/31/20 04:49 Normal Saline IV 07/31/20 05:17 125 mls/hr ASDIRECTED ONE Administration Piperacillin Sod/Tazobactam 100 mls @ 100 mls/hr 07/31/20 04:46 07/31/20 05:08 Sod 4.5 gm/ Sodium Chloride IV 07/31/20 05:45 100 mls/hr STAT ONE Administration Sodium Chloride 75 mls @ 3.5 mls/sec 07/31/20 06:00 07/31/20 06:38 Normal Saline IV 3 mls/sec ASDIRECTED GLADYS Administration Iopamidol 100 ml 07/31/20 05:47 07/31/20 06:38 Iopamidol 612 Mg/Ml 500 Ml Multipack Bottle IV 07/31/20 05:48 100 ml ONETIME ONE Administration Sodium Chloride 10 ml 07/31/20 04:17 07/31/20 05:12 Sodium Chloride 0.9% 10 Ml Syringe FLUSH 10 ml ASDIRECTED PRN Administration Keep Vein Open Sodium Chloride 10 ml 07/31/20 05:47 07/31/20 06:38 Sodium Chloride 0.9% 10 Ml Syringe FLUSH 07/31/20 05:48 10 ml ONETIME ONE Administration - Re-Assessments/Exams Free Text/Narrative Re-Assessment/Exam: 07/31/20 07:22 64-year-old female arrived in respiratory distress earlier this morning, evaluated and treatment started by Dr. Rosario. Care turned over to myself pending CT report and disposition. CT was sent to [facility], I discussed her case with Dr. Fuentes and he accepted her for transfer for direct admission to the medical service. CT report is not available yet but will be added, discussed with the patient's mother and she is in agreement with the plan. O2 sats are 97% with nasal cannula O2, no increased respiratory rate but the patient is sedated and appears ill. Viral studies are negative including coronavirus. 07/31/20 07:48 IMPRESSION: 1. Possible small subsegmental pulmonary emboli within left lower lobe branches. No definite evidence of right heart strain. Findings discussed with Car Neal at 7:39 a.m. on 07/31/2020. 2. Large right pleural effusion with associated right lung atelectasis. There is heterogeneous enhancement of the atelectatic lung, and an underlying infiltrate cannot entirely be excluded. 3. There also appears to be a separate 3.4 x 3.5 cm gas and fluid collection within the atelectatic right lung suspicious for a pulmonary abscess. 4. Few small noncalcified pulmonary nodules in the left lung measuring up to 5 mm. Please see follow-up guidelines below. Departure - Departure Time of Disposition: 07:56 Sepsis Event Note (ED) - Focused Exam Vital Signs: Vital Signs Temp Pulse Resp BP Pulse Ox 07/31/20 07:26 97.7 F 101 H 20 118/66 07/31/20 05:04 100.1 F 110 H 26 H 133/66 94 L 07/31/20 04:43 99.2 F 116 H 28 H 94 L 07/31/20 04:17 100.3 F 130 H 45 H 145/82 H 87 L
[2020-07-31 05:36] LABS: CORONAVIRUS COVID-19 NAA NEGATIVE (NEGATIVE)
[2020-07-31] MEDS ORDERED: Sodium Chloride 0.9% 10 ML Syringe FLUSH ONE (05:47)
[2020-07-31] MEDS ORDERED: Iopamidol 612 MG/ML 500 ML Multipack Bottle IV ONE (05:47)
[2020-07-31] MEDS ORDERED: Sodium Chloride 0.9% 75 ML IV SCH (06:00)
[2020-07-31 07:27] VITALS: BP 118/66; PULSE 101
--- NOTE | 2020-07-31 07:43 | CRLCT ---
INDICATION: Hypoxic. COMPARISON: Chest radiograph 07/31/2020. CT chest 05/07/2017. TECHNIQUE: CT of the chest with 100 cc of Isovue-300 IV contrast. Coronal and sagittal reconstructions. 3D post processing was performed. FINDINGS: Normal heart size. Normal caliber thoracic aorta and central pulmonary arteries. Coronary artery calcifications. No large or central pulmonary emboli. Cannot exclude possibility of small emboli within subsegmental branches of the left lower lobe (series 2, image 46). No definite evidence of right heart strain. No pericardial effusion. Borderline enlarged subcarinal lymph node measuring 1.0 cm short axis. No other thoracic lymphadenopathy. There is a new large right pleural effusion with associated right lung atelectasis. There is heterogeneous enhancement of the atelectatic right lung, and an underlying infiltrate cannot entirely be excluded. There is also a 3.4 x 3.5 cm gas and fluid collection within the atelectatic right lung which may represent a pulmonary abscess (series 2, image 70). No pneumothorax. 5 mm noncalcified pulmonary nodule in the posterior left lower lobe (series 3, image 27). 3 mm noncalcified pulmonary nodule in the posterior left lower lobe (image 64). 2 mm noncalcified pulmonary nodule in the posterior lateral left lower lobe (image 64). The thyroid gland is mildly prominent size with heterogeneous parenchyma. Status post right 1st rib resection. Gastrostomy tube. Cholecystectomy. IMPRESSION: 1. Possible small subsegmental pulmonary emboli within left lower lobe branches. No definite evidence of right heart strain. Findings discussed with Car Neal at 7:39 a.m. on 07/31/2020. 2. Large right pleural effusion with associated right lung atelectasis. There is heterogeneous enhancement of the atelectatic lung, and an underlying infiltrate cannot entirely be excluded. 3. There also appears to be a separate 3.4 x 3.5 cm gas and fluid collection within the atelectatic right lung suspicious for a pulmonary abscess. 4. Few small noncalcified pulmonary nodules in the left lung measuring up to 5 mm. Please see follow-up guidelines below. [employer] GUID[employer]IN[employer] - SOLID NODULES: : SINGLE LOW RISK - nodule less than 6 mm: No routine follow-up. - nodule 6-8 mm: CT at 6-12 months, then consider CT at 18-24 months. - nodule greater than 8 mm: Consider CT at 3 months, PET/CT or tissue sampling. SINGLE HIGH RISK - nodule less than 6 mm: Optional CT at 12 months. - nodule 6-8 mm: CT at 6-12 months, then CT at 18-24 months. - nodule greater than 8 mm: Consider CT at 3 months, PET/CT or tissue sampling. MULTIPLE LOW RISK - nodule less than 6 mm: No routine follow-up. - nodule 6-8 mm: CT at 3-6 months, then consider CT at 18-24 months. - nodule greater than 8 mm: CT at 3-6 months, then consider CT at 18-24 months. MULTIPLE HIGH RISK - nodule less than 6 mm: Optional CT at 12 months. - nodule 6-8 mm: CT at 3-6 months, then at 18-24 months. - nodule greater than 8 mm: CT at 3-6 months, then at 18-24 months. Please note that all CT scans at this facility use dose modulation, iterative reconstruction, and/or weight-based dosing when appropriate to reduce radiation dose to as low as reasonably achievable. Dictated by Keshia Suarez MD @ Jul 31 2020 7:25AM Signed by Dr. Keshia Suarez @ Jul 31 2020 7:42AM
--- NOTE | 2020-07-31 09:21 | CR ---
CHEST: Portable 07/31/2020 at 5:19 AM CLINICAL HISTORY:Cough COMPARISON:CT 2018 FINDINGS: There is a chest wall defect in the high right lateral apex similar to multiple prior studies. There is opacification in the right mid and lower lung field. This may represent some pleural effusion and airspace disease which could be consolidation or atelectasis. Impression: Lower right hemithorax opacification may represent combination of pleural fluid and underlying atelectasis and/or consolidation. If clinically relevant decubitus views or CT should be considered Right lateral apex chest wall deformity similar to multiple prior studies
== END 2020-07-31 07:56 | disposition other institution (70) ==
LOC: JP.ED 03:31
DX: J85.1 Abscess of lung with pneumonia (principal); J96.01 Acute respiratory failure with hypoxia; R00.0 Tachycardia, unspecified; E66.9 Obesity, unspecified; Z68.33 Body mass index [BMI] 33.0-33.9, adult; Z79.899 Other long term (current) drug therapy; Z88.8 Allergy status to other drugs, medicaments and biological substances; Z88.1 Allergy status to other antibiotic agents; Z88.5 Allergy status to narcotic agent; Z88.6 Allergy status to analgesic agent; Z20.822 Contact with and (suspected) exposure to COVID-19
CPT/HCPCS: 0241U; 36415; 71045; 71045-26; 71260; 80053; 81001; 83605; 84145; 84484; 85025; 85610; 86140; 87040; 87070; 87205; 94640; 96365; 99285-25; J2543; J7030; Q9967